=== PATIENT | male | born 1940 | race Caucasian/White ===

== ENCOUNTER 2016-11-18 16:55 | Emergency (ER) | payer BC ==
[~2016-11-18 16:55] MED LIST: EZFE 200200 MG PO; MEVACOR40 MG PO; NEXIUM20 M1 PO; PREV15 PO; SYN.05 PO; SYN112 PO
== END 2016-11-18 20:52 | disposition home or self-care (01) ==
LOC: ER 16:55
DX: S00.01XA Abrasion of scalp, initial encounter (principal); S40.212A Abrasion of left shoulder, initial encounter; Z79.899 Other long term (current) drug therapy; W19.XXXA Unspecified fall, initial encounter
CPT/HCPCS: 70450; 71250; 72125; 99284